=== PATIENT | male | born 1970 ===

== ENCOUNTER 2023-10-16 05:05 | Day surgery (SDC) | payer OTHER ==
[2023-10-16] MEDS ORDERED: METRONIDAZOLE/SODIUM CHLORIDE 500 MG/100 ML PIGGYBACK IV ONE ×2 (07:10→07:30)
[2023-10-16] MEDS ORDERED: CEFTRIAXONE SODIUM 2,000 MG VIAL ONE (07:11)
[2023-10-16] MEDS ORDERED: DIBUCAINE 15 GM OINT..GM. TUBE ONE (07:19)
[2023-10-16] MEDS ORDERED: HEMOSTATIC MATRIX 1 KIT KIT TOP ONE ×2 (07:19→07:30)
[2023-10-16] MEDS ORDERED: POVIDONE-IODINE 118 ML BOTT TOP ONE ×2 (07:19→07:30)
[2023-10-16] MEDS ORDERED: LIDOCAINE HCL 1%/EPINEPHRINE 20ML VIAL IJ ONE ×2 (07:21→07:30)
[2023-10-16] MEDS ORDERED: DIBUCAINE 15 GM OINT..GM. TUBE RECTAL ONE (07:30)
[2023-10-16] MEDS ORDERED: BUPIVACAINE HCL 30 ML VIAL IJ ONE (07:30)
[2023-10-16] MEDS ORDERED: CEFTRIAXONE SODIUM 2,000 MG VIAL IV ONE (07:30)
[2023-10-16] MEDS ORDERED: TAMSULOSIN HCL 0.4 MG CAP PO ONE ×2 (08:30→11:15)
[2023-10-16] MEDS ORDERED: OXYC1TAB9 PO (08:32)
== END 2023-10-16 15:05 | disposition home or self-care (01) ==
LOC: CIR.AMB 05:05
PROVIDERS: ATTEND Surgery
DX: K64.2 Third degree hemorrhoids (principal); K64.8 Other hemorrhoids; K64.4 Residual hemorrhoidal skin tags